=== PATIENT | female | born 1965 | race Asian ===

== ENCOUNTER 2016-11-15 09:00 | Emergency (ER) | payer OTHER ==
[~2016-11-15] VITALS: Ht 149.9 cm; Wt 66.4 kg
[2016-11-15 09:52] LABS: EOSINOPHIL (%) 1.1 % (0-5); EOSINOPHIL COUNT 0.1 K/uL (0-0.3); HEMATOCRIT 43.4 % (36.0-46.0); LYMPHOCYTE COUNT 1.8 K/uL (1.0-2.8); MCH 27.7 PG (29.0-34.0); MCHC 34.6 G/DL (30.0-36.0); MCV 80.1 FL (83-99); MEAN PLAT.VOLUME 9.6 uM^3 (9.5-12.4); MONOCYTE (%) 6.2 % (3-12); MONOCYTE COUNT 0.4 K/uL (0-0.8); NEUTROPHIL (%) 66.8 % (45-76); NEUTROPHIL COUNT 4.8 K/uL (1.8-6.4); PLATELET COUNT 325 K/uL (156-360); RBC DIS.WIDTH-SD 37.1 % (39-53); RED BLOOD COUNT 5.42 M/uL (3.80-5.20); WHITE BLOOD COUNT 7.1 K/uL (4.1-10.2)
[2016-11-15 10:05] LABS: CHLORIDE 104 mEq/L (99-109); POTASSIUM 4.6 mEq/L (3.7-5.4); SODIUM 136 mEq/L (136-147)
[2016-11-15 10:07] LABS: GLUCOSE 335 mg/dL (70-99)
[2016-11-15 10:08] LABS: ANION GAP 14 MEQ/L (2-14)
[2016-11-15 10:11] LABS: GFR ESTIMATE (CALCULATED) > 59 mL/min/
[2016-11-15 10:12] LABS: UREA NITROGEN (BUN) 15 mg/dL (9-23)
[2016-11-15] MEDS ORDERED: METFORMIN HCL500 M4 PO (11:36)
[2016-11-15] MEDS ORDERED: VALTREX1000 MG PO (11:36)
[2016-11-15] MEDS ORDERED: PREDNISONE50 MG PO (11:36)
[2016-11-15] MEDS ORDERED: LISINOPRIL10 MG PO (11:36)
[2016-11-15 11:53] LABS: ADD MIUA? YES; BILIRUBIN NEGATIVE; BLOOD MODERATE; COLOR YELLOW ((YELLOW)); GLUCOSE (STRIP) >=500; KETONES 20; LEUKOCYTES SMALL; NITRITE NEGATIVE; PROTEIN (STRIP) >=500; SPECIFIC GRAVITY 1.021 (1.000-1.030); UROBILINOGEN 0.2 MG/DL (0.2-1.0)
[2016-11-15 12:04] LABS: Estimated Average Glucose 346 mg/dL (70-123); HEMOGLOBIN A1c (GLYCOHEMOGLOB) 13.7 % HGB (Below 5.7)
[2016-11-15 12:09] LABS: HDL CHOLESTEROL 59 MG/DL (Desirable>=50); LDL CHOLESTEROL 122 mg/dL (Desirable<100); NON-HDL CHOLESTEROL 159 mg/dL (Desirable<160); TOTAL CHOLESTEROL 218 mg/dL (Desirable<200); TRIGLYCERIDES 184 MG/DL (Normal: <150)
[2016-11-15 12:22] LABS: RED BLOOD CELLS 0-5 /HPF (0-5)
[2016-11-15 12:23] LABS: BACTERIA 3+ /HPF; EPITHELIAL CELLS RARE /HPF; MUCUS NONE SEEN /LPF; OTHER BUDDING YEAST 3+; UCUL ADDED? YES
[2016-11-15 12:42] LABS: POINT-OF-CARE METER ID UU13113702
[2016-11-15 12:48] VITALS: BP 104/64
== END 2016-11-15 13:37 | disposition home or self-care (01) ==
LOC: EME 09:00
PROVIDERS: Emergency Medicine
DX: G51.0 Bell's palsy (principal); I10 Essential (primary) hypertension; E11.9 Type 2 diabetes mellitus without complications; Z72.0 Tobacco use
CPT/HCPCS: 80048; 80061; 81003; 82948; 83036; 85025; 87086; 99281; 99285; J7040

== ENCOUNTER → 2017-07-24 | Outpatient (CLI) | payer BC ==
[~2017-07-24] MED LIST: LISINOPRIL10 MG PO; METFORMIN HCL500 M4 PO; PREDNISONE50 MG PO; VALTREX1000 MG PO
== END | disposition home or self-care (01) ==
LOC: CDC 15:16
DX: R00.0 Tachycardia, unspecified (principal)
CPT/HCPCS: 93000